=== PATIENT | female | born 1985 | race Caucasian/White ===

== ENCOUNTER 2017-07-27 16:26 | Outpatient (CLI) | payer OTHER ==
[~2017-07-27 16:26] MED LIST: PRENATAL + DHA1 EAC1
== END 2017-07-27 20:59 | disposition home or self-care (01) ==
LOC: NST 16:26
DX: Z34.83 Encounter for supervision of other normal pregnancy, third trimester (principal)

== ENCOUNTER 2017-08-05 08:55 | Outpatient (CLI) | payer OTHER | END 2017-08-05 09:47 | disposition home or self-care (01) | LOC: NST 08:55 | DX: Z34.83 Encounter for supervision of other normal pregnancy, third trimester (principal) ==

== ENCOUNTER 2017-08-09 08:59 | Outpatient (CLI) | payer OTHER | END 2017-08-09 10:06 | disposition home or self-care (01) | LOC: NST 08:59 | DX: Z34.83 Encounter for supervision of other normal pregnancy, third trimester (principal) ==

== ENCOUNTER 2017-08-12 18:38 | Outpatient (CLI) | payer OTHER | END 2017-08-12 20:48 | disposition home or self-care (01) | LOC: NST 18:38 | DX: Z34.83 Encounter for supervision of other normal pregnancy, third trimester (principal) ==

== ENCOUNTER → 2017-08-23 | Outpatient (CLI) | payer OTHER | END | disposition home or self-care (01) | LOC: NST 09:25 | DX: Z34.83 Encounter for supervision of other normal pregnancy, third trimester (principal) ==

== ENCOUNTER 2017-08-30 13:07 | Outpatient (CLI) | payer OTHER | END 2017-08-30 13:45 | disposition home or self-care (01) | LOC: NST 13:07 | DX: Z34.93 Encounter for supervision of normal pregnancy, unspecified, third trimester (principal) ==

== ENCOUNTER 2017-09-02 20:23 | Outpatient (CLI) | payer OTHER | END 2017-09-03 14:59 | disposition home or self-care (01) | LOC: OBS/DEL 20:23 | DX: O60.03 Preterm labor without delivery, third trimester (principal); Z34.83 Encounter for supervision of other normal pregnancy, third trimester ==

== ENCOUNTER 2017-09-09 13:30 | Inpatient (IN) | payer OTHER ==
[~2017-09-09] VITALS: Ht 162.6 cm; Wt 3.2 kg
[2017-09-27] MEDS ORDERED: PERCOCET 5-3251 EACH (02:08)
== END 2017-09-26 11:43 | DRG 766 ==
LOC: LDR 09-23 14:03 → OB/GYN 09-23 17:06
PROVIDERS: Obstetrics & Gynecology Maternal & Fetal Medicine
PROC: 4A1HXCZ Monitoring of Products of Conception, Cardiac Rate, External Approach (ICD-10-PCS; 2017-09-23)
PROC: 4A033R1 Measurement of Arterial Saturation, Peripheral, Percutaneous Approach (ICD-10-PCS; 2017-09-23)
PROC: 10D00Z1 Extraction of Products of Conception, Low, Open Approach (ICD-10-PCS; principal; 2017-09-23 15:00)
DX: O32.1XX0 Maternal care for breech presentation, not applicable or unspecified (principal); Z3A.39 39 weeks gestation of pregnancy; Z37.0 Single live birth

== ENCOUNTER 2017-09-13 11:00 | Outpatient (CLI) | payer OTHER | END 2017-09-13 11:43 | disposition home or self-care (01) | LOC: NST 11:00 | DX: Z34.83 Encounter for supervision of other normal pregnancy, third trimester (principal) ==

== ENCOUNTER → 2017-09-20 | Outpatient (CLI) | payer OTHER | END | disposition home or self-care (01) | LOC: NST 13:52 | DX: Z34.83 Encounter for supervision of other normal pregnancy, third trimester (principal) ==

== ENCOUNTER → 2017-09-27 | Emergency (ER) | payer OTHER ==
[~2017-09-27] VITALS: Ht 162.6 cm; Wt 71.7 kg
[~2017-09-27] MED LIST changes: +PERCOCET 5-3251 EACH
== END | disposition home or self-care (01) ==
LOC: ER 01:57
DX: J95.89 Other postprocedural complications and disorders of respiratory system, not elsewhere classified (principal); R06.02 Shortness of breath
CPT/HCPCS: 93005; 78582; A9539; A9567; A9540

== ENCOUNTER 2018-07-20 07:52 | Emergency (ER) | payer OTHER ==
[~2018-07-20] VITALS: Ht 162.6 cm; Wt 63.5 kg
== END 2018-07-20 15:32 | disposition home or self-care (01) ==
LOC: ER 07:52
DX: K29.60 Other gastritis without bleeding (principal); R11.10 Vomiting, unspecified